=== PATIENT | male | born 1990 | race African-American/Black ===

== ENCOUNTER 2021-04-01 07:07 | Emergency (ER) | payer OTHER, SELFPAY ==
[2021-04-01 07:23] VITALS: BP 135/79; PULSE 74; RESP 18; TEMP 36.8; O2SAT 100; BMI 29.0
[2021-04-01 07:43] LABS: Bacteria Urine None Seen; RBC Urine None Seen (0-5/HPF); WBC Urine None Seen (0-5/HPF)
[2021-04-01 07:45] LABS: Appearance Urine UA CLEAR; Bilirubin Urine UA NEGATIVE (NEGATIVE); Color Urine UA YELLOW; Glucose Urine UA NEGATIVE (Negative); Ketones Urine UA NEGATIVE (NEGATIVE); Leukocyte Esterase Urine UA NEGATIVE (NEGATIVE); Nitrite Urine UA NEGATIVE (Negative); Occult Blood Urine UA NEGATIVE (Negative); Protein Urine UA NEGATIVE (Negative); Specific Gravity Urine UA 1.015 (1.000-1.035); Urobilinogen Urine UA 0.2 E.U./dL (0.2)
--- NOTE | 2021-04-01 07:52 | ED.MALEGU ---
HPI - Male Genitourinary General Chief complaint: Urogenital-Male Stated complaint: Wants testing for STD Time Seen by Provider: 04/01/21 07:45 Source: patient Mode of arrival: Ambulatory Limitations: no limitations History of Present Illness HPI Narrative: Patient is a 30-year-old male who presents concerned for STD. He says that he has some peeling skin on his penis. 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 He is now back home with his and wants to be checked. He denies any penile discharge. He has no painful or erythematous testicles. His sent him here to be checked. He has no abdominal pain nausea vomiting no fevers. Related Data Allergies Allergy/AdvReac Type Severity Reaction Status Date / Time No Known Drug Allergies Allergy Verified 04/01/21 07:23 Review of Systems Review of Systems Narrative: GENERAL: Denies chills,fever HEENT: Denies throat pain RESPIRATORY: Denies dyspnea, cough, wheezing CARDIOVASCULAR: Denies chest pain, palpitations GASTROINTESTINAL: Denies nausea, vomiting : See HPI MUSCULOSKELETAL: Denies extremity pain, injury SKIN: No rash, no laceration, no pruritus NEUROLOGIC: Denies weakness, dizziness, headache, numbness 8 point review of systems is negative except for those stated above and HPI Patient History Social History Smoking Status: Never smoker Smoking Status: Never smoker alcohol intake frequency: a few times a week Substance Use Type: does not use Exam Initial Vital Signs Initial Vital Signs: Vital Signs Temperature 98.2 F 04/01/21 07:23 Pulse Rate 74 04/01/21 07:23 Respiratory Rate 18 04/01/21 07:23 Blood Pressure 135/79 04/01/21 07:23 Pulse Oximetry 100 04/01/21 07:23 GENERAL: [Well-appearing, well-nourished] and in [no acute] distress. HEENT: Head atraumatic,EOMI, pupils reactive, CARDIOVASCULAR: Regular rate and rhythm without murmurs, rubs or gallops. RESPIRATORY: Breath sounds equal bilaterally, no wheezes rales or rhonchi. ABDOMEN: Soft, nontender. Normoactive bowel sounds all 4 quadrants. No guarding or rebound. : Nurse [place] and present for exam, no testicular tenderness, erythema. No penile discharge. Uncircumcised penis foreskin is easily pulled back. There are no vesicles I see no peeling skin the patient is concern for some small flesh-colored bumps which do not appear wart like EXTREMITIES: Normal range of motion, no clubbing or edema. Neurovascularly intact NEUROLOGICAL: Alert and oriented x4. SKIN: Warm, dry, no laceration, no petechiae, no rashes or lesions. Course Orders Ordered: ED Orders 04/01/21 07:17 Chlamydia Gonorrhea PCR -URINE Stat Urinalysis and Microscopic Stat Vital Signs Vital signs: Vital Signs - 8 hr 04/01/21 07:23 Temperature 98.2 F Pulse Rate 74 Respiratory Rate 18 Blood Pressure 135/79 Pulse Oximetry 100 MDM - Male Genitourinary Lab Data Labs: Lab Results 04/01/21 04/01/21 Range/Units 07:17 07:17 Urine Color Yellow Urine Appearance Clear Urine pH 6.0 (4.5-8.0) Ur Specific [place] 1.015 (1.000-1.035) Urine Protein Negative (Negative) Urine Glucose (UA) Negative (Negative) g/dL Urine Ketones Negative (NEGATIVE) Urine Occult Blood Negative (Negative) Urine Nitrate Negative (Negative) Urine Bilirubin Negative (NEGATIVE) Urine Urobilinogen 0.2 (0.2) E.U./dL Ur Leukocyte Esterase Negative (NEGATIVE) Urine RBC None seen (0-5/HPF) Urine WBC None seen (0-5/HPF) Urine Bacteria None seen (None) Ur Culture Indicated? Cult not indicated Micro UA Comment Microscopic normal Ur Chlamydia DNA (PCR) Not detected N gonorrhoeae DNA (PCR) Not detected [facility] Narrative Medical decision making narrative: Gonorrhea chlamydia urine is pending. At this time I will discharge him and call him if his tests are positive, however my suspicion is low. I have offered him antibiotic treatment just in case however he opts not to at this time. Patient's testing is negative. I did discuss with patient that if he is very concerned he needs to have HIV and hepatitis testing done as well which will not be done here. I also strongly encouraged him to use condoms. Discharge Plan Departure Patient Disposition: Home Clinical Impression: Potential exposure to STD Instructions: Gonorrhea, Chlamydia Activity Restrictions/Additional Instructions: *You have been diagnosed with possible exposure to STD *What to do: At this time her gonorrhea chlamydia results are pending. I will call you only if they are positive and you need treatment. However I did not test to for other sexually transmitted diseases such as HIV hepatitis syphilis and others. If you are concerned please see a primary care provider for further testing. It is also strongly recommended that he use condoms well having sex *Continue to take medications as directed *Follow up with your primary care provider in 2-3 days *Return to ER if you should have any new, worsening or concerning symptoms
[2021-04-01 07:58] LABS: Culture Indicated Urine Cult Not Indicated; Urine Comments Microscopic Normal
[2021-04-01 09:14] LABS: Urine N gonorrhoeae NOT DETECTED
[2021-04-01 09:19] LABS: Urine Chlamydia NOT DETECTED
== END 2021-04-01 08:03 | disposition home or self-care (01) ==
PROVIDERS: Emergency Provider Emergency Medicine
DX: Z20.2 Contact with and (suspected) exposure to infections with a predominantly sexual mode of transmission (principal)
CPT/HCPCS: 81001; 87491; 87591; 99281; 99282